=== PATIENT | male | born 1960 | race Hispanic/Latino ===

== ENCOUNTER 2021-12-25 15:26 | Emergency (ER) | payer BC ==
[~2021-12-25] VITALS: Ht 182.9 cm; Wt 83.9 kg
[2021-12-25] MEDS ORDERED: KETOROLAC TROMETHAMINE 60 MG/2 ML VIAL IM ONE (16:00)
[2021-12-25] MEDS ORDERED: KETOROLAC TROMETHAMINE 30 MG/ML VIAL ONE (16:16)
[2021-12-25] MEDS ORDERED: IBUPROFEN600 MG PO (16:21)
== END 2021-12-25 16:31 | disposition home or self-care (01) ==
LOC: FSED 15:53
DX: M25.531 Pain in right wrist (principal); G56.01 Carpal tunnel syndrome, right upper limb; E11.9 Type 2 diabetes mellitus without complications
CPT/HCPCS: 73110; 99283; J1885